=== PATIENT | female | born 1995 | race Caucasian/White ===

== ENCOUNTER 2019-01-02 22:25 | Emergency (ER) | payer OTHER ==
--- NOTE | 2019-01-02 22:35 | ERPHSYRPT ---
- History of Present Illness Time Seen by Provider: 01/02/19 22:35 Historian: patient, family Exam Limitations: no limitations Physician History: 23 y/o obese white female presents with sudden onset of bilat lower quadrant pain. L worse than R. no flank pain. pt just completed her lmp. pt has h/o ruptured ovarian cysts. feels like that but more intense. no vaginal bleeding. no dysuria. no n/v/d. no prior abd surgeries Timing/Duration: today, sudden, worse Activities at Onset: none Quality: sharpness, stabbing Abdominal Pain Onset Location: RLQ, LLQ Pain Radiation: no radiation Severity of Pain-Max: moderate Severity of Pain-Current: moderate Modifying Factors: Improves With: palpation Associated Symptoms: denies symptoms Previous symptoms: no prior history Allergies/Adverse Reactions: erythromycin base [Erythromycin Base] Allergy (Mild, Verified 01/02/19 22:33) Hives penicillin G Allergy (Mild, Verified 01/02/19 22:33) Hives Home Medications: Lamotrigine [Lamictal] 0 mg PO DAILY 03/03/14 [History] AMITRIPTYLINE HCL 50 mg Tab [AMITRIPTYLINE HCL 50 mg Tablet] 50 mg PO DAILY 11/16 [History] Cetirizine HCl 10 mg PO DAILY 01/02/19 [History] EPINEPHrine [Epipen 0.3 MG] 0.3 mg SQ DAILY PRN PRN 01/02/19 [History] Eletriptan HBr 40 mg PO Q4HPRN PRN 01/02/19 [History] Fluoxetine HCl 10 mg [Prozac 10 mg] 10 mg PO DAILY 01/02/19 [History] Norethindrone 0.35 mg PO DAILY 01/02/19 [History] Omeprazole 20 mg PO DAILY 01/02/19 [History] Tizanidine HCl 4 mg PO HS 01/02/19 [History] Tizanidine HCl 4 mg [Zanaflex 4 MG] 2 mg PO BID 01/02/19 [History] Hx Tetanus, Diphtheria Vaccination/Date Given: Yes Hx Influenza Vaccination/Date Given: No Hx Pneumococcal Vaccination/Date Given: No - Review of Systems Constitutional: No Symptoms Eyes: No Symptoms Ears, Nose, & Throat: No Symptoms Respiratory: No Symptoms Cardiac: No Symptoms Abdominal/Gastrointestinal: Abdominal Pain (bilat lower quad) Genitourinary Symptoms: No Symptoms Musculoskeletal: No Symptoms Skin: No Symptoms Neurological: No Symptoms Psychological: No Symptoms Endocrine: No Symptoms Hematologic/Lymphatic: No Symptoms Immunological/Allergic: No Symptoms All Other Systems: Reviewed and Negative - Past Medical History Pertinent Past Medical History: Yes Neurological History: Migraines ENT History: No Pertinent History Cardiac History: No Pertinent History, Other Respiratory History: No Pertinent History Endocrine Medical History: No Pertinent History Musculoskeletal History: No Pertinent History GI Medical History: No Pertinent History History: No Pertinent History Psycho-Social History: Attention Deficit Disorder, Bipolar, Depression Female Reproductive Disorders: No Pertinent History Other Medical History: pulmonary stenosis, no problems with it since a kid, 2 knee surgeries on L, 1 on R knee - Past Surgical History Past Surgical History: Yes Neuro Surgical History: No Pertinent History Cardiac: No Pertinent History Respiratory: No Pertinent History Gastrointestinal: No Pertinent History Genitourinary: No Pertinent History Musculoskeletal: No Pertinent History Female Surgical History: No Pertinent History Other Surgical History: TONSILLECTOMY AND BONE RESET - Social History Smoking Status: Never smoker Exposure to second hand smoke: Yes Alcohol Use: None Drug Use: none Patient Lives Alone: No Significant Family History: no pertinent family hx - Nursing Vital Signs Nursing Vital Signs: Initial Vital Signs Temperature 98.3 F 01/02/19 22:34 Pulse Rate 88 01/02/19 22:34 Respiratory Rate 16 01/02/19 22:34 Blood Pressure 105/72 01/02/19 22:34 O2 Sat by Pulse Oximetry 95 01/02/19 22:34 Pain Scale Pain Intensity 0 - Physical Exam General Appearance: mild distress, alert, anxiety, obese Eye Exam: PERRL/EOMI Ears, Nose, Throat Exam: normal ENT inspection, moist mucous membranes Neck Exam: normal inspection, non-tender, supple, full range of motion Respiratory Exam: normal breath sounds, lungs clear, airway intact, No chest tenderness, No respiratory distress Cardiovascular Exam: regular rate/rhythm, normal heart sounds, normal peripheral pulses Gastrointestinal/Abdomen Exam: soft, normal bowel sounds, tenderness (bilat lower quads l>r; ), guarding, No rebound Pelvic Exam: not done Rectal Exam: not done Back Exam: normal inspection, normal range of motion, vertebral tenderness, No CVA tenderness Extremity Exam: normal inspection, normal range of motion, pelvis stable Neurologic Exam: alert, oriented x 3, cooperative, body finisher II-XII nml as tested Skin Exam: normal color, warm, dry Lymphatic Exam: No adenopathy SpO2 Interpretation: normal O2 Delivery: Room Air - Course Nursing assessment & vital signs reviewed: Yes Ordered Tests: Active Orders 24 hr Category Date Time Status IV Insertion STAT Care 01/02/19 22:42 Active ABDOMEN AND PELVIS W/0 CONTRAS [CT] Stat Exams 01/02/19 22:53 Taken AMYLASE Stat Lab 01/02/19 23:53 Completed CBC W DIFF Stat Lab 01/02/19 23:53 Completed CMP Stat Lab 01/02/19 23:53 Completed CULTURE,URINE Stat Lab 01/02/19 23:53 Received HCG QUALITATIVE,SERUM Stat Lab 01/02/19 23:53 Completed LIPASE Stat Lab 01/02/19 23:53 Completed Lactic Acid Stat Lab 01/02/19 22:53 Completed UA W/RFX UR CULTURE Stat Lab 01/02/19 23:53 Completed Medication Summary Generic Name Dose Route Start Last Admin Trade Name Freq PRN Reason Stop Dose Admin Sodium Chloride 500 mls @ 500 mls/hr 01/03/19 01:06 01/03/19 01:10 Sodium Chloride 0.9% 500 Ml IV 01/03/19 02:05 500 mls/hr .Q1H ONE Administration Discontinued Medications Generic Name Dose Route Start Last Admin Trade Name Freq PRN Reason Stop Dose Admin Hydromorphone HCl 0.5 mg 01/02/19 22:53 01/02/19 23:09 Hydromorphone 1 Mg/Ml Ampule IV 01/02/19 22:54 0.5 mg STAT ONE Administration Hydromorphone HCl Confirm 01/02/19 23:04 Hydromorphone 1 Mg/Ml Ampule Administered 01/02/19 23:05 Dose 1 mg .ROUTE .STK-MED ONE Sodium Chloride 1,000 mls @ 999 mls/hr 01/02/19 22:53 01/03/19 01:11 Sodium Chloride 0.9% 1000 Ml IV 01/02/19 23:53 Infused .Q1H1M STA Infusion Sodium Chloride Confirm 01/02/19 23:04 Sodium Chloride 0.9% 1000 Ml Administered 01/02/19 23:05 Dose 1,000 mls @ ud .ROUTE .STK-MED ONE Sodium Chloride Confirm 01/03/19 01:07 Sodium Chloride 0.9% 500 Ml Administered 01/03/19 01:08 Dose 500 mls @ ud IV .STK-MED ONE Ketorolac Tromethamine 30 mg 01/02/19 22:53 01/02/19 23:09 Toradol 30 Mg Injection IV 01/02/19 22:54 30 mg STAT ONE Administration Ketorolac Tromethamine Confirm 01/02/19 23:04 Toradol 30 Mg Injection Administered 01/02/19 23:05 Dose 30 mg .ROUTE .STK-MED ONE Ondansetron HCl 4 mg 01/02/19 22:53 01/02/19 23:09 Zofran 4 Mg/2 Ml Vial IV 01/02/19 22:54 4 mg STAT ONE Administration Ondansetron HCl Confirm 01/02/19 23:04 Zofran 4 Mg/2 Ml Vial Administered 01/02/19 23:05 Dose 4 mg .ROUTE .STK-MED ONE Lab/Rad Data: Laboratory Result Diagrams 01/02/19 23:53 01/02/19 23:53 Laboratory Results 01/02/19 01/02/19 01/02/19 Range/Units 23:53 23:53 23:53 WBC (4.0-10.5) K/mm3 RBC (4.1-5.4) M/mm3 Hgb (12.0-16.0) gm/dl Hct (35-47) % MCV (78-100) fl MCH (26-32) pg MCHC (32-36) g/dl RDW (11.5-14.0) % Plt Count (150-450) K/mm3 MPV (6-9.5) fl Gran % (36.0-66.0) % Eos # (Auto) (0-0.5) Absolute Lymphs (auto) (1.0-4.6) Absolute Monos (auto) (0.0-1.3) Lymphocytes % (24.0-44.0) % Monocytes % (0.0-12.0) % Eosinophils % (0.00-5.0) % Basophils % (0.0-0.4) % Absolute Granulocytes (1.4-6.9) Basophils # (0-0.4) Sodium 141 (137-145) mmol/L Potassium 3.7 (3.5-5.1) mmol/L Chloride 108 H (98-107) mmol/L Carbon Dioxide 19 L (22-30) mmol/L Anion Gap 17.3 H (5-15) MEQ/L BUN 13 (7-17) mg/dL Creatinine 1.02 (0.52-1.04) mg/dL Estimated GFR > 60.0 ML/MIN Glucose 116 H (74-106) mg/dL Lactic Acid (0.4-2.0) Calcium 9.7 (8.4-10.2) mg/dL Total Bilirubin 0.80 (0.2-1.3) mg/dL AST 28 (14-36) U/L ALT 22 (0-35) U/L Alkaline Phosphatase 99 (38-126) U/L Serum Total Protein 7.8 (6.3-8.2) g/dL Albumin 4.3 (3.5-5.0) g/dL Amylase 50 (30-110) U/L Lipase 25 (23-300) U/L Serum , Qual NEGATIVE (Negative) Urine Color JESENIA (YELLOW) Urine Appearance CLOUDY (CLEAR) Urine pH 5.0 (5-6) Ur Specific Stanton 1.027 (1.005-1.025) Urine Protein 100 (Negative) Urine Ketones TRACE (NEGATIVE) Urine Blood LARGE (0-5) Gurmeet/ul Urine Nitrite NEGATIVE (NEGATIVE) Urine Bilirubin NEGATIVE (NEGATIVE) Urine Urobilinogen NEGATIVE (0-1) mg/dL Ur Leukocyte Esterase NEGATIVE (NEGATIVE) Urine WBC (Auto) 26-50 (0-5) /HPF Urine RBC (Auto) >101 (0-2) /HPF U Epithel Cells (Auto) FEW (FEW) /HPF Urine Bacteria (Auto) NONE (NEGATIVE) /HPF Urine Mucus (Auto) SLIGHT (NEGATIVE) /HPF Urine Culture Reflexed YES (NO) Urine Glucose NEGATIVE (NEGATIVE) mg/dL 01/02/19 01/02/19 Range/Units 23:53 22:53 WBC 10.9 H (4.0-10.5) K/mm3 RBC 5.08 (4.1-5.4) M/mm3 Hgb 14.3 (12.0-16.0) gm/dl Hct 41.7 (35-47) % MCV 82.1 (78-100) fl MCH 28.1 (26-32) pg MCHC 34.3 (32-36) g/dl RDW 13.8 (11.5-14.0) % Plt Count 326 (150-450) K/mm3 MPV 11.9 H (6-9.5) fl Gran % 83.1 H (36.0-66.0) % Eos # (Auto) 0.16 (0-0.5) Absolute Lymphs (auto) 1.12 (1.0-4.6) Absolute Monos (auto) 0.52 (0.0-1.3) Lymphocytes % 10.3 L (24.0-44.0) % Monocytes % 4.8 (0.0-12.0) % Eosinophils % 1.5 (0.00-5.0) % Basophils % 0.3 (0.0-0.4) % Absolute Granulocytes 9.06 H (1.4-6.9) Basophils # 0.03 (0-0.4) Sodium (137-145) mmol/L Potassium (3.5-5.1) mmol/L Chloride (98-107) mmol/L Carbon Dioxide (22-30) mmol/L Anion Gap (5-15) MEQ/L BUN (7-17) mg/dL Creatinine (0.52-1.04) mg/dL Estimated GFR ML/MIN Glucose (74-106) mg/dL Lactic Acid 2.1 H (0.4-2.0) Calcium (8.4-10.2) mg/dL Total Bilirubin (0.2-1.3) mg/dL AST (14-36) U/L ALT (0-35) U/L Alkaline Phosphatase (38-126) U/L Serum Total Protein (6.3-8.2) g/dL Albumin (3.5-5.0) g/dL Amylase (30-110) U/L Lipase (23-300) U/L Serum , Qual (Negative) Urine Color (YELLOW) Urine Appearance (CLEAR) Urine pH (5-6) Ur Specific Stanton (1.005-1.025) Urine Protein (Negative) Urine Ketones (NEGATIVE) Urine Blood (0-5) Gurmeet/ul Urine Nitrite (NEGATIVE) Urine Bilirubin (NEGATIVE) Urine Urobilinogen (0-1) mg/dL Ur Leukocyte Esterase (NEGATIVE) Urine WBC (Auto) (0-5) /HPF Urine RBC (Auto) (0-2) /HPF U Epithel Cells (Auto) (FEW) /HPF Urine Bacteria (Auto) (NEGATIVE) /HPF Urine Mucus (Auto) (NEGATIVE) /HPF Urine Culture Reflexed (NO) Urine Glucose (NEGATIVE) mg/dL - Progress Progress: improved Progress Note: 01/03/19 01:49 ct abd/pelvis-3mm left upj stone with minimal hydronephrosis Counseled pt/family regarding: lab results, diagnosis, need for follow-up, rad results - Departure Departure Disposition: Home Clinical Impression: Left ureteral calculus, UTI (urinary tract infection) Condition: Stable Critical Care Time: No Referrals: LUPE DONAHUE [Primary Care Provider] - Additional Instructions: drink plenty of fluids. add ibuprofen for pain as discussed. follow up with primary doctor for further management Prescriptions: Hydrocodone/APAP 5/325 [[place] 5/325 mg] 1 each PO Q8H PRN PRN #6 tablet MDD 6 PRN Reason: Pain Ciprofloxacin [Cipro 500 MG] 500 mg PO BID #14 tablet
[2019-01-02] MEDS ORDERED: Hydromorphone 1 mg/ml Ampule IV ONE (22:53)
[2019-01-02] MEDS ORDERED: Sodium Chloride 0.9% 1000 ML 1,000 ML IV STA (22:53)
[2019-01-02] MEDS ORDERED: TORAdol 30 mg Injection IV ONE (22:53)
[2019-01-02] MEDS ORDERED: Zofran 4 MG/2 ML VIAL IV ONE (22:53)
[2019-01-02] MEDS ORDERED: Zofran 4 MG/2 ML VIAL ONE (23:04)
[2019-01-02] MEDS ORDERED: Sodium Chloride 0.9% 1000 ML 1,000 ML ONE (23:04)
[2019-01-02] MEDS ORDERED: Hydromorphone 1 mg/ml Ampule ONE (23:04)
[2019-01-02] MEDS ORDERED: TORAdol 30 mg Injection ONE (23:04)
[2019-01-02 23:24] LABS: Lactic Acid 2.1 (0.4-2.0)
[2019-01-02 23:25] LABS: BASOPHIL % 0.3 % (0.0-0.4); Basophil (Absolute #) 0.03 (0-0.4); Eosinophil % 1.5 % (0.00-5.0); Eosinophil (Absolute #) 0.16 (0-0.5); Granulocyte Absolute (ANC) 9.06 (1.4-6.9); Granulocytes % 83.1 % (36.0-66.0); Hematocrit 41.7 % (35-47); Hemoglobin 14.3 gm/dl (12.0-16.0); Lymphocyte (Absolute #) 1.12 (1.0-4.6); Lymphocytes % 10.3 % (24.0-44.0); Mean Cell Volume 82.1 fl (78-100); Mean Corpuscular Hemoglobin 28.1 pg (26-32); Mean Corpuscular Hgb Concent. 34.3 g/dl (32-36); Mean Platelet Volume 11.9 fl (6-9.5); Monocyte (Absolute #) 0.52 (0.0-1.3); Monocytes % 4.8 % (0.0-12.0); Platelet Count 326 K/mm3 (150-450); Red Blood Count 5.08 M/mm3 (4.1-5.4); Red Cell Distribution Width 13.8 % (11.5-14.0); White Blood Count 10.9 K/mm3 (4.0-10.5)
[2019-01-02 23:55] LABS: Appearance CLOUDY (CLEAR); Bilirubin NEGATIVE (NEGATIVE); Blood LARGE Ery/ul (0-5); Epithelial Cells FEW /HPF (FEW); Glucose NEGATIVE (NEGATIVE); Ketones TRACE (NEGATIVE); Leukocyte Esterase NEGATIVE (NEGATIVE); Mucus SLIGHT /HPF (NEGATIVE); Nitrite NEGATIVE (NEGATIVE); Protein,Urine Dip 100 (Negative); Specific Gravity 1.027 (1.005-1.025); Urobilinogen NEGATIVE mg/dL (0-1); WBC 26-50 /HPF (0-5)
[2019-01-02 23:57] LABS: RBC >101 /HPF (0-2)
[2019-01-03] LABS: ALBUMIN 4.3 g/dL (3.5-5.0); ALKALINE PHOSPHATASE 99 U/L (38-126); AMYLASE 50 U/L (30-110); ANION GAP 17.3 MEQ/L (5-15); BLOOD UREA NITROGEN 13 mg/dL (7-17); CHLORIDE 108 mmol/L (98-107); Calcium 9.7 mg/dL (8.4-10.2); Carbon Dioxide 19 mmol/L (22-30); Creatinine 1 1.02 mg/dL (0.52-1.04); Glucose 116 mg/dL (74-106); Potassium 3.7 mmol/L (3.5-5.1); SGOT/AST 28 U/L (14-36); SGPT/ALT 22 U/L (0-35); SODIUM 141 mmol/L (137-145); Total Protein 7.8 g/dL (6.3-8.2)
[2019-01-03] MEDS ORDERED: Sodium Chloride 0.9% 500 ML 500 ML IV ONE ×2 (01:06→01:07)
[2019-01-03] MEDS ORDERED: Cipro 500 MG PO ONE (01:55)
[2019-01-03] MEDS ORDERED: Cipro 500 MG ONE (02:01)
[2019-01-03 02:27] VITALS: BP 110/63; PULSE 79; O2SAT 98
--- NOTE | 2019-01-03 08:46 | XRAY ---
Indication: Bilateral lower quadrant pain. Emesis. Hematuria. Multiple contiguous axial images obtained through the abdomen and pelvis without contrast as ordered. Comparison: March 07, 2012. Lung bases demonstrates minimal bibasilar atelectasis/scarring. Heart is not enlarged. Noncontrasted stomach and bowel loops appear nonobstructed. Normal appendix. No free fluid/air. New 3 mm proximal left ureter calculus, approximately L2 level. Minimal left hydronephrosis consistent with partial obstruction. No perinephric fluid. Remaining liver, gallbladder, pancreas, spleen, adrenal glands, kidneys, ureters, bladder, uterus, and aorta appear unremarkable for noncontrast exam. Osseous structures intact. Impression: 1. New 3 mm proximal left ureter calculus producing minimal partial obstruction. 2. Remaining CT abdomen/pelvis without contrast exam is negative. Comment: Preliminary interpretation was made by C. No discrepancy. CTDI 23.68
== END 2019-01-03 02:27 | disposition home or self-care (01) ==
LOC: ED 22:25
DX: N20.1 Calculus of ureter (principal); N39.0 Urinary tract infection, site not specified; R10.31 Right lower quadrant pain; R10.32 Left lower quadrant pain; Z79.899 Other long term (current) drug therapy
CPT/HCPCS: 36000; 36415; 74176; 80053; 81001; 81025; 82150; 83605; 83690; 85025; 87086; 96360; 96361; 96374; 96375; 99284; J1170; J1885; J2405; A9270-GY

== ENCOUNTER 2021-09-04 14:46 | Emergency (ER) | payer OTHER ==
--- NOTE | 2021-09-04 15:22 | XRAY ---
Indication: Pain following fall 2 weeks ago. 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 No other bony, articular, or soft tissue abnormalities.
--- NOTE | 2021-09-04 15:53 | ERPHSYRPT ---
- History of Present Illness Source: patient Exam Limitations: no limitations Patient Subjective Stated Complaint: Pt fell approx 2 weeks ago out of a chair and landed on her left shoulder and continues to have pain to it and to her mid back Triage Nursing Assessment: Pt was brought to the ER by her mother, vitals wnl, rates pain as 6/10, pulses normal, tender to touch on shoulder and back, no visible bruising, full range of motion with her left arm, doesn't appear to be in any distress Physician History: 26 yo wf w cc of L shoulder pain after falling backward out of a chair 2 wks ago. Pt is R handed and denies other/previous injury. She denies CHIANG/LOC/C,T, and L-spine pain/B hip pain/LE pain/. Occurred: other (2 wks ago) Method of Injury: fell Quality: constant Severity of Pain-Max: moderate Severity of Pain-Current: moderate Extremities Pain Location: shoulder: left Modifying Factors: Improves With: nothing, movement Associated Symptoms: No back pain, No chills, No chest discomfort, No chest pain, No dyspnea, No fever, No jaw pain, No nausea, No neck pain, No sweating, No short of breath, No vomiting Allergies/Adverse Reactions: erythromycin base [Erythromycin Base] Allergy (Mild, Verified 09/04/21 15:01) Hives penicillin G Allergy (Mild, Verified 09/04/21 15:01) Hives Home Medications: Lamotrigine [Lamictal] 150 mg PO BID 03/03/14 [History] AMITRIPTYLINE HCL 50 mg Tab [AMITRIPTYLINE HCL 50 mg Tablet] 50 mg PO DAILY 01/02/19 [History] Cetirizine HCl 10 mg PO DAILY 01/02/19 [History] EPINEPHrine [Epipen 0.3 MG] 0.3 mg SQ DAILY PRN PRN 01/02/19 [History] Eletriptan HBr 40 mg PO Q6HPRN PRN 01/02/19 [History] Norethindrone 0.35 mg PO DAILY 01/02/19 [History] Omeprazole 20 mg PO DAILY 01/02/19 [History] Tizanidine HCl 4 mg PO BID 01/02/19 [History] Buspirone HCl 10 mg PO TID 09/04/21 [History] Montelukast Sodium 10 mg [Singulair 10 MG] 10 mg PO DAILY 09/04/21 [History] Vortioxetine Hydrobromide [Trintellix] 20 mg PO DAILY 09/04/21 [History] hydrOXYzine HCL [Hydroxyzine HCl] 10 mg PO BID 09/04/21 [History] Hx Tetanus, Diphtheria Vaccination/Date Given: Yes Hx Influenza Vaccination/Date Given: No Hx Pneumococcal Vaccination/Date Given: No Travel Risk - International Travel Have you traveled outside of the country in past 3 weeks: No - Coronavirus Screening Are you exhibiting any of the following symptoms?: No Close contact with a COVID-19 positive Pt in past 14-21 Days: No - Vaccine Status Have you recieved a Covid-19 vaccination: No - Review of Systems Constitutional: No Symptoms Eyes: No Symptoms Ears, Nose, & Throat: No Symptoms Respiratory: No Symptoms Cardiac: No Symptoms Abdominal/Gastrointestinal: No Symptoms Genitourinary Symptoms: No Symptoms Musculoskeletal: Injury, Joint Pain (L shoulder), No Back Pain, No Neck Pain, No Deformity, No Fall, No Joint Redness, No Joint Swelling, No Myalgias Skin: No Symptoms Neurological: No Symptoms Psychological: No Symptoms Endocrine: No Symptoms Hematologic/Lymphatic: No Symptoms Immunological/Allergic: No Symptoms - Past Medical History Pertinent Past Medical History: Yes Neurological History: Migraines ENT History: No Pertinent History Cardiac History: Other Respiratory History: No Pertinent History Endocrine Medical History: No Pertinent History Musculoskeletal History: Other GI Medical History: No Pertinent History History: No Pertinent History Psycho-Social History: Attention Deficit Disorder, Bipolar, Depression Female Reproductive Disorders: No Pertinent History Other Medical History: STATES HAS PULMONARY STENOSIS BUT ASYMPTOMATIC SINCE A CHILD. ANXIETY, BIPOLAR, DEPRESSION - Past Surgical History Past Surgical History: Yes Neuro Surgical History: No Pertinent History Cardiac: No Pertinent History Respiratory: No Pertinent History Gastrointestinal: No Pertinent History Genitourinary: No Pertinent History Musculoskeletal: No Pertinent History Female Surgical History: No Pertinent History Other Surgical History: TONSILLECTOMY AND BONE RESET - Social History Smoking Status: Former smoker Exposure to second hand smoke: No Alcohol Use: None Drug Use: none Patient Lives Alone: No Significant Family History: no pertinent family hx - Female History Hx Last Menstrual Period: last month Hx Now: No - Nursing Vital Signs Nursing Vital Signs: Initial Vital Signs Temperature 98.6 F 09/04/21 14:52 Pulse Rate 91 H 09/04/21 14:52 Blood Pressure 143/64 09/04/21 14:52 O2 Sat by Pulse Oximetry 99 09/04/21 14:52 Pain Scale Pain Intensity [] 6 Pain Intensity 5 Hypertensive - Physical Exam General Appearance: no apparent distress Eyes, Ears, Nose, Throat Exam: normal ENT inspection, TMs normal, pharynx normal, moist mucous membranes Neck Exam: normal inspection (C-spine NTTP), non-tender, supple, full range of motion, No Brudzinski, No Kernig's, No meningismus, No carotid bruit Cardiovascular/Respiratory Exam: chest non-tender, normal breath sounds, regular rate/rhythm, heart sounds normal Abdominal Exam: non-tender, soft, no organomegaly Back Exam: normal inspection (No T or L-spine TTP) Shoulder Exam: bone tenderness (L-shoulder TTP anteriorly-posteriorly/L scapula TTP/pain w abduction, and external rotation/Good radial pulse, distal sensation, and capillary return) Elbow/Forearm Exam: normal inspection Wrist Exam: normal inspection Hand Exam: normal inspection DTR - Upper Extremity Exam: bicep (R): 1+, bicep (L): 1+ Neuro/Tendon Exam: normal sensation, normal motor functions, normal tendon functions, responds to pain, no evidence tendon injury, No motor deficit, No sensory deficit Mental Status Exam: alert, oriented x 3, cooperative Skin Exam: normal color, warm, dry SpO2 Interpretation: normal SpO2: 99 O2 Delivery: Room Air - Course Nursing assessment & vital signs reviewed: Yes - Radiology Exams Shoulder X-ray Interpretation: Discussed w/ radiologist (No acute traumatic injury) Ordered Tests: Active Orders 24 hr Category Date Time Status SHOULDER Stat Exams 09/04/21 15:15 Completed Medication Summary Discontinued Medications Generic Name Dose Route Start Last Admin Trade Name Freq PRN Reason Stop Dose Admin Ketorolac Tromethamine 30 mg 09/04/21 15:55 09/04/21 16:02 Ketorolac Tromethamine 30 Mg/Ml Inj IM 09/04/21 15:56 30 mg STAT ONE Administration Ketorolac Tromethamine Confirm 09/04/21 15:59 Ketorolac Tromethamine 30 Mg/Ml Inj Administered 09/04/21 16:00 Dose 30 mg .ROUTE .STK-MED ONE - Progress Counseled pt/family regarding: diagnosis, need for follow-up, rad results - Departure Departure Disposition: Home Clinical Impression: Contusion of shoulder, left Condition: Stable Critical Care Time: No Referrals: LUPE DONAHUE [Primary Care Provider] - Follow up/PCP as directed ORTHO - MARLON HUGHES NP [NON-STAFF PHY W/O PRIVILEGES] - Follow up/PCP as directed Instructions: Shoulder Sprain Additional Instructions: Rest/Heat/Massage Follow up with your family MD or Ortho clinic Prescriptions: Etodolac 400 mg [Lodine 400 mg] 400 mg PO BID PRN #20 tablet PRN Reason: Pain
[2021-09-04] MEDS ORDERED: TORAdol 30 mg Injection IM ONE (15:55)
[2021-09-04 15:58] VITALS: O2SAT 99
[2021-09-04] MEDS ORDERED: TORAdol 30 mg Injection ONE (15:59)
[2021-09-04 16:06] VITALS: BP 131/74; PULSE 90
== END 2021-09-04 16:19 | disposition home or self-care (01) ==
LOC: ED 14:46
DX: S40.012A Contusion of left shoulder, initial encounter (principal); W07.XXXA Fall from chair, initial encounter; Z79.899 Other long term (current) drug therapy
CPT/HCPCS: 73030; 96372; 99284; J1885

== ENCOUNTER 2022-04-16 14:15 | Emergency (ER) | payer OTHER ==
[2022-04-16] MEDS ORDERED: Zofran 4 MG/2 ML VIAL IV ONE (14:44)
[2022-04-16] MEDS ORDERED: Sodium Chloride 0.9% 1000 ML 1,000 ML IV STA (14:44)
[2022-04-16 14:52] LABS: Absolute Neutrophil Ct (ANC) 6.71 x10^3/uL (1.4-6.9); Basophil (Absolute #) 0.05 x10^3/uL (0-0.4); Eosinophil % 0.8 % (0.00-5.0); Eosinophil (Absolute #) 0.07 x10^3/uL (0-0.5); Hematocrit 40.1 % (35-47); Hemoglobin 13.4 g/dL (12.0-16.0); Lymphocyte (Absolute #) 1.04 x10^3/uL (1.0-4.6); Lymphocytes % 12.6 % (24.0-44.0); Mean Cell Volume 84.2 fL (78-100); Mean Corpuscular Hemoglobin 28.2 pg (26-32); Mean Corpuscular Hgb Concent. 33.4 g/dL (32-36); Mean Platelet Volume 10.4 fL (7.5-11.0); Monocyte (Absolute #) 0.38 x10^3/uL (0.0-1.3); Monocytes % 4.6 % (0.0-12.0); Platelet Count 316 x10^3/uL (150-450); Red Blood Count 4.76 x10^6/uL (4.1-5.4); Red Cell Distribution Width 12.8 % (11.5-14.0); White Blood Count 8.3 x10^3/uL (4.0-10.5)
[2022-04-16] MEDS ORDERED: Sodium Chloride 0.9% 1000 ML 1,000 ML ONE (14:54)
[2022-04-16] MEDS ORDERED: Zofran 4 MG/2 ML VIAL ONE (14:54)
[2022-04-16 14:57] LABS: Appearance SLIGHTLY CLOUDY (CLEAR); Bilirubin NEGATIVE (NEGATIVE); Dipstick done @ ? MAIN LAB; Glucose NEGATIVE (NEGATIVE); Ketones NEGATIVE (NEGATIVE); Nitrite NEGATIVE (NEGATIVE); Protein,Urine Dip TRACE (Negative); RBC LARGE Ery/ul (0-5); Specific Gravity 1.025 (1.005-1.025); Urobilinogen 0.2 mg/dL (0-1)
[2022-04-16] MEDS ORDERED: TORAdol 30 mg Injection IV ONE ×2 (15:00→16:36)
[2022-04-16] MEDS ORDERED: TORAdol 30 mg Injection ONE ×2 (15:00→16:49)
[2022-04-16 15:10] LABS: ALBUMIN 4.3 g/dL (3.5-5.0); ALKALINE PHOSPHATASE 104 U/L (38-126); AMYLASE 52 U/L (30-110); ANION GAP 12.1 MEQ/L (5-15); BLOOD UREA NITROGEN 14 mg/dL (7-17); CHLORIDE 110 mmol/L (98-107); Calcium 9.2 mg/dL (8.4-10.2); Carbon Dioxide 21 mmol/L (22-30); Creatinine 1 0.94 mg/dL (0.52-1.04); EST GLOMERULAR FILTRATION RATE > 60.0 ML/MIN; Glucose 126 mg/dL (74-106); LIPASE 29 U/L (23-300); Potassium 3.9 mmol/L (3.5-5.1); SGOT/AST 20 U/L (14-36); SGPT/ALT 25 U/L (0-35); SODIUM 139 mmol/L (137-145); Total Protein 7.5 g/dL (6.3-8.2)
[2022-04-16 15:19] LABS: Bacteria RARE /HPF (NEGATIVE); Epithelial Cells FEW /HPF (FEW); Mucus SLIGHT /HPF (NEGATIVE); RBC 51-100 /HPF (0-2); Urine Cultured Indicated? YES
--- NOTE | 2022-04-16 15:21 | ERPHSYRPT ---
- History of Present Illness Historian: patient Exam Limitations: no limitations Patient Subjective Stated Complaint: abd pain, NVD, R sided flank pain Triage Nursing Assessment: . Physician History: 27 yo wf w R sided abdominal pain since noon today. Pain is 10/10, sharp, w radiation to her R CVA. She has had N/V/D wo hematemesis/melena/hematochezia. Dysuria/hematuria/fever are all denied. Pain similar to kidney stone in the past. Timing/Duration: other (Noon today) Quality: stabbing Abdominal Pain Onset Location: LUQ, LLQ Pain Radiation: flank (R CVA) Severity of Pain-Max: severe Severity of Pain-Current: severe Modifying Factors: Improves With: nothing Associated Symptoms: denies symptoms, back, diarrhea, vomiting Previous symptoms: same symptoms as today (W kidney stone) Allergies/Adverse Reactions: erythromycin base [Erythromycin Base] Allergy (Mild, Verified 04/16/22 14:32) Hives penicillin G Allergy (Mild, Verified 04/16/22 14:32) Hives Home Medications: Lamotrigine [Lamictal] 150 mg PO BID 03/03/14 [History] AMITRIPTYLINE HCL 50 mg Tab [AMITRIPTYLINE HCL 50 mg Tablet] 50 mg PO DAILY 01/02/19 [History] Cetirizine HCl 10 mg PO DAILY 01/02/19 [History] EPINEPHrine [Epipen 0.3 MG] 0.3 mg SQ DAILY PRN PRN 01/02/19 [History] Eletriptan HBr 40 mg PO Q6HPRN PRN 01/02/19 [History] Norethindrone 0.35 mg PO DAILY 01/02/19 [History] Omeprazole 20 mg PO DAILY 01/02/19 [History] Tizanidine HCl 4 mg PO BID 01/02/19 [History] Buspirone HCl 10 mg PO TID 09/04/21 [History] Montelukast Sodium 10 mg [Singulair 10 MG] 10 mg PO DAILY 09/04/21 [History] Vortioxetine Hydrobromide [Trintellix] 20 mg PO DAILY 09/04/21 [History] hydrOXYzine HCL [Hydroxyzine HCl] 10 mg PO BID 09/04/21 [History] Hx Tetanus, Diphtheria Vaccination/Date Given: Yes Hx Influenza Vaccination/Date Given: Yes Hx Pneumococcal Vaccination/Date Given: No Immunizations Up to Date: Yes Travel Risk - International Travel Have you traveled outside of the country in past 3 weeks: No - Coronavirus Screening Are you exhibiting any of the following symptoms?: Yes Symptoms: Vomiting/Diarrhea Close contact with a COVID-19 positive Pt in past 14-21 Days: No - Vaccine Status Have you recieved a Covid-19 vaccination: No - Review of Systems Constitutional: No Symptoms Eyes: No Symptoms Ears, Nose, & Throat: No Symptoms Respiratory: No Symptoms Cardiac: No Symptoms Abdominal/Gastrointestinal: No Symptoms, Abdominal Pain, Nausea, Vomiting, Diarrhea Genitourinary Symptoms: No Symptoms Musculoskeletal: No Symptoms Skin: No Symptoms Neurological: No Symptoms Psychological: No Symptoms Endocrine: No Symptoms Hematologic/Lymphatic: No Symptoms Immunological/Allergic: No Symptoms - Past Medical History Pertinent Past Medical History: Yes Neurological History: Migraines ENT History: No Pertinent History Cardiac History: Other Respiratory History: No Pertinent History Endocrine Medical History: No Pertinent History Musculoskeletal History: Other GI Medical History: No Pertinent History History: No Pertinent History Psycho-Social History: Attention Deficit Disorder, Bipolar, Depression Female Reproductive Disorders: No Pertinent History Other Medical History: STATES HAS PULMONARY STENOSIS BUT ASYMPTOMATIC SINCE A CHILD. ANXIETY, BIPOLAR, DEPRESSION - Past Surgical History Past Surgical History: Yes Neuro Surgical History: No Pertinent History Cardiac: No Pertinent History Respiratory: No Pertinent History Gastrointestinal: No Pertinent History Genitourinary: No Pertinent History Musculoskeletal: Orthopedic Surgery Female Surgical History: No Pertinent History Other Surgical History: TONSILLECTOMY AND BONE RESET. bilateral knee surgeries x3 - Social History Smoking Status: Former smoker Exposure to second hand smoke: No Alcohol Use: None Drug Use: none Patient Lives Alone: No Significant Family History: no pertinent family hx - Female History Hx Last Menstrual Period: months ago Hx Now: No - Nursing Vital Signs Nursing Vital Signs: Initial Vital Signs Temperature 96.0 F 04/16/22 14:24 Pulse Rate 80 04/16/22 14:24 Respiratory Rate 20 04/16/22 14:24 Blood Pressure 157/77 04/16/22 14:24 O2 Sat by Pulse Oximetry 98 04/16/22 14:24 Pain Scale Pain Intensity 5 Hypertensive - Physical Exam General Appearance: no apparent distress Eye Exam: PERRL/EOMI, eyes nml inspection Ears, Nose, Throat Exam: normal ENT inspection, TMs normal, pharynx normal, moist mucous membranes Neck Exam: normal inspection, non-tender, supple, full range of motion, No meningismus, No mass, No Brudzinski, No Kernig's, No carotid bruit Respiratory Exam: normal breath sounds, lungs clear, airway intact Cardiovascular Exam: regular rate/rhythm, normal heart sounds, normal peripheral pulses, capillary refill <2 sec, No murmur Gastrointestinal/Abdomen Exam: soft, normal bowel sounds, tenderness (TTP R LQ>RUQ, mild R CVA TTP) Extremity Exam: normal inspection, normal range of motion Neurologic Exam: alert, oriented x 3, cooperative, regional operations manager II-XII nml as tested, normal mood/affect, nml cerebellar function, nml station & gait, sensation nml, No motor deficits, No sensory deficit Skin Exam: normal color, warm, dry, No rash Lymphatic Exam: No adenopathy SpO2 Interpretation: normal SpO2: 98 O2 Delivery: Room Air - Course Nursing assessment & vital signs reviewed: Yes - CT Exams Abdomen/Pelvis CT Interpretation: Discussed w/radiologist (3mm R mid-ureteral stone/minimal R hydronephrosis) Ordered Tests: Active Orders 24 hr Category Date Time Status IV Insertion STAT Care 04/16/22 14:32 Completed ABDOMEN AND PELVIS W/0 CONTRAS [CT] Stat Exams 04/16/22 15:32 Completed AMYLASE Stat Lab 04/16/22 14:30 Completed CBC W DIFF Stat Lab 04/16/22 14:30 Completed CMP Stat Lab 04/16/22 14:30 Completed CULTURE,URINE Stat Lab 04/16/22 14:45 Received HCG QUALITATIVE,SERUM Stat Lab 04/16/22 14:30 Completed LIPASE Stat Lab 04/16/22 14:30 Completed UA W/RFX CULTURE Stat Lab 04/16/22 14:45 Completed Urine Triage Profile Stat Lab 04/16/22 14:45 Completed Medication Summary Discontinued Medications Generic Name Dose Route Start Last Admin Trade Name Freq PRN Reason Stop Dose Admin Sodium Chloride 1,000 mls @ 999 mls/hr 04/16/22 14:44 04/16/22 16:10 Sodium Chloride 0.9% 1000 Ml IV 04/16/22 15:44 Infused .Q1H1M STA Infusion Sodium Chloride Confirm 04/16/22 14:54 Sodium Chloride 0.9% 1000 Ml Administered 04/16/22 14:55 Dose 1,000 mls @ ud .ROUTE .STK-MED ONE Ceftriaxone Sodium/Dextrose 1 g in 50 mls @ 100 mls/hr 04/16/22 16:35 04/16/22 16:57 Rocephin 1 Gm-D5w 50 Ml Bag IV 04/16/22 17:04 Infused STAT STA Infusion Ceftriaxone Sodium/Dextrose Confirm 04/16/22 16:49 Rocephin 1 Gm-D5w 50 Ml Bag Administered 04/16/22 16:50 Dose 1 g in 50 mls @ ud IV .STK-MED ONE Ketorolac Tromethamine 15 mg 04/16/22 15:00 04/16/22 15:01 Ketorolac Tromethamine 30 Mg/Ml Inj IV 04/16/22 15:01 15 mg STAT ONE Administration Ketorolac Tromethamine Confirm 04/16/22 15:00 Ketorolac Tromethamine 30 Mg/Ml Inj Administered 04/16/22 15:01 Dose 30 mg .ROUTE .STK-MED ONE Ketorolac Tromethamine 15 mg 04/16/22 16:36 04/16/22 16:52 Ketorolac Tromethamine 30 Mg/Ml Inj IV 04/16/22 16:37 15 mg STAT ONE Administration Ketorolac Tromethamine Confirm 04/16/22 16:49 Ketorolac Tromethamine 30 Mg/Ml Inj Administered 04/16/22 16:50 Dose 30 mg .ROUTE .STK-MED ONE Ondansetron HCl 4 mg 04/16/22 14:44 04/16/22 15:01 Ondansetron Hcl 4 Mg/2 Ml Vial IV 04/16/22 14:45 4 mg STAT ONE Administration Ondansetron HCl Confirm 04/16/22 14:54 Ondansetron Hcl 4 Mg/2 Ml Vial Administered 04/16/22 14:55 Dose 4 mg .ROUTE .STK-MED ONE Lab/Rad Data: Laboratory Result Diagrams 04/16/22 14:30 04/16/22 14:30 Laboratory Results 04/16/22 04/16/22 04/16/22 Range/Units 15:20 14:45 14:45 WBC (4.0-10.5) x10^3/uL RBC (4.1-5.4) x10^6/uL Hgb (12.0-16.0) g/dL Hct (35-47) % MCV (78-100) fL MCH (26-32) pg MCHC (32-36) g/dL RDW (11.5-14.0) % Plt Count (150-450) x10^3/uL MPV (7.5-11.0) fL Gran % (36.0-66.0) % Immature Gran % (Auto) (0.00-0.4) % Nucleat RBC Rel Count (0.00-0.1) % Eos # (Auto) (0-0.5) x10^3/uL Immature Gran # (Auto) (0.00-0.03) x10^3u/L Absolute Lymphs (auto) (1.0-4.6) x10^3/uL Absolute Monos (auto) (0.0-1.3) x10^3/uL Absolute Nucleated RBC (0.00-0.01) x10^3u/L Lymphocytes % (24.0-44.0) % Monocytes % (0.0-12.0) % Eosinophils % (0.00-5.0) % Basophils % (0.0-0.4) % Absolute Granulocytes (1.4-6.9) x10^3/uL Basophils # (0-0.4) x10^3/uL Sodium (137-145) mmol/L Potassium (3.5-5.1) mmol/L Chloride (98-107) mmol/L Carbon Dioxide (22-30) mmol/L Anion Gap (5-15) MEQ/L BUN (7-17) mg/dL Creatinine (0.52-1.04) mg/dL Estimated GFR ML/MIN Glucose (74-106) mg/dL Calcium (8.4-10.2) mg/dL Total Bilirubin (0.2-1.3) mg/dL AST (14-36) U/L ALT (0-35) U/L Alkaline Phosphatase (38-126) U/L Serum Total Protein (6.3-8.2) g/dL Albumin (3.5-5.0) g/dL Amylase (30-110) U/L Lipase (23-300) U/L Serum , Qual (Negative) Urinalys Dipstick Clnc MAIN LAB Urine Color YELLOW (YELLOW) Urine Appearance SLIGHTLY CLOUDY (CLEAR) Urine pH 6.0 (5-6) Ur Specific [place] 1.025 (1.005-1.025) POC Urine Protein Conf TRACE (Negative) Urine Ketones NEGATIVE (NEGATIVE) Urine Nitrite NEGATIVE (NEGATIVE) Urine Bilirubin NEGATIVE (NEGATIVE) Urine Urobilinogen 0.2 (0-1) mg/dL Urine Leukocytes TRACE (NEGATIVE) Urine WBC (Auto) 16-25 (0-5) /HPF Urine RBC (Auto) 51-100 (0-2) /HPF U Hyaline Cast (Auto) 3-5 (0-2) /LPF U Epithel Cells (Auto) FEW (FEW) /HPF Urine Bacteria (Auto) RARE (NEGATIVE) /HPF Urine RBC LARGE (0-5) Gurmeet/ul Urine Mucus (Auto) SLIGHT (NEGATIVE) /HPF Ur Culture Indicated? YES Urine Glucose NEGATIVE (NEGATIVE) mg/dL Urine Opiates Level NEGATIVE (NEGATIVE) Ur Methadone NEGATIVE (NEGATIVE) Urine Barbiturates NEGATIVE (NEGATIVE) Ur Phencyclidine (PCP) NEGATIVE (NEGATIVE) Urine Amphetamine NEGATIVE (NEGATIVE) U Benzodiazepine Level NEGATIVE (NEGATIVE) Urine Cocaine NEGATIVE (NEGATIVE) Urine Marijuana (THC) NEGATIVE (NEGATIVE) Influenza Type A Ag NEGATIVE (NEGATIVE) Influenza Type B Ag NEGATIVE (NEGATIVE) RSV (PCR) NEGATIVE (Negative) SARS-CoV-2 (PCR) NEGATIVE (NEGATIVE) 04/16/22 04/16/22 04/16/22 Range/Units 14:30 14:30 14:30 WBC 8.3 (4.0-10.5) x10^3/uL RBC 4.76 (4.1-5.4) x10^6/uL Hgb 13.4 (12.0-16.0) g/dL Hct 40.1 (35-47) % MCV 84.2 (78-100) fL MCH 28.2 (26-32) pg MCHC 33.4 (32-36) g/dL RDW 12.8 (11.5-14.0) % Plt Count 316 (150-450) x10^3/uL MPV 10.4 (7.5-11.0) fL Gran % 81.0 H (36.0-66.0) % Immature Gran % (Auto) 0.4 (0.00-0.4) % Nucleat RBC Rel Count 0.0 (0.00-0.1) % Eos # (Auto) 0.07 (0-0.5) x10^3/uL Immature Gran # (Auto) 0.03 (0.00-0.03) x10^3u/L Absolute Lymphs (auto) 1.04 (1.0-4.6) x10^3/uL Absolute Monos (auto) 0.38 (0.0-1.3) x10^3/uL Absolute Nucleated RBC 0.00 (0.00-0.01) x10^3u/L Lymphocytes % 12.6 L (24.0-44.0) % Monocytes % 4.6 (0.0-12.0) % Eosinophils % 0.8 (0.00-5.0) % Basophils % 0.6 (0.0-0.4) % Absolute Granulocytes 6.71 (1.4-6.9) x10^3/uL Basophils # 0.05 (0-0.4) x10^3/uL Sodium 139 (137-145) mmol/L Potassium 3.9 (3.5-5.1) mmol/L Chloride 110 H (98-107) mmol/L Carbon Dioxide 21 L (22-30) mmol/L Anion Gap 12.1 (5-15) MEQ/L BUN 14 (7-17) mg/dL Creatinine 0.94 (0.52-1.04) mg/dL Estimated GFR > 60.0 ML/MIN Glucose 126 H (74-106) mg/dL Calcium 9.2 (8.4-10.2) mg/dL Total Bilirubin 0.70 (0.2-1.3) mg/dL AST 20 (14-36) U/L ALT 25 (0-35) U/L Alkaline Phosphatase 104 (38-126) U/L Serum Total Protein 7.5 (6.3-8.2) g/dL Albumin 4.3 (3.5-5.0) g/dL Amylase 52 (30-110) U/L Lipase 29 (23-300) U/L Serum , Qual NEGATIVE (Negative) Urinalys Dipstick Clnc Urine Color (YELLOW) Urine Appearance (CLEAR) Urine pH (5-6) Ur Specific [place] (1.005-1.025) POC Urine Protein Conf (Negative) Urine Ketones (NEGATIVE) Urine Nitrite (NEGATIVE) Urine Bilirubin (NEGATIVE) Urine Urobilinogen (0-1) mg/dL Urine Leukocytes (NEGATIVE) Urine WBC (Auto) (0-5) /HPF Urine RBC (Auto) (0-2) /HPF U Hyaline Cast (Auto) (0-2) /LPF U Epithel Cells (Auto) (FEW) /HPF Urine Bacteria (Auto) (NEGATIVE) /HPF Urine RBC (0-5) Gurmeet/ul Urine Mucus (Auto) (NEGATIVE) /HPF Ur Culture Indicated? Urine Glucose (NEGATIVE) mg/dL Urine Opiates Level (NEGATIVE) Ur Methadone (NEGATIVE) Urine Barbiturates (NEGATIVE) Ur Phencyclidine (PCP) (NEGATIVE) Urine Amphetamine (NEGATIVE) U Benzodiazepine Level (NEGATIVE) Urine Cocaine (NEGATIVE) Urine Marijuana (THC) (NEGATIVE) Influenza Type A Ag (NEGATIVE) Influenza Type B Ag (NEGATIVE) RSV (PCR) (Negative) SARS-CoV-2 (PCR) (NEGATIVE) - Progress Progress: improved Progress Note: 04/16/22 16:38 1L NS bolus/4mg IV Zofran 15mg IV Toradol w improvement in pain 1gm IV Rocephin 15mg IV Toradol Counseled pt/family regarding: lab results, diagnosis, need for follow-up, rad results - Departure Departure Disposition: Home Clinical Impression: Ureterolithiasis, UTI (urinary tract infection) Condition: Stable Critical Care Time: No Referrals: LUPE DONAHUE [Primary Care Provider] - Follow up/PCP as directed Instructions: Kidney Stones (DC), Urinary Tract Infection, Adult (DC) Additional Instructions: Strain all urine Pain meds as needed Start Bactrim twice a day for 5 days Follow up with your family MD Return to ER for increasing pain or temperature greater than 100.5 Prescriptions: Hydrocodone/Acetaminophen [Hydrocodone-Acetamin 10-325 mg] 1 tablet PO Q4H PRN PRN #6 tablet MDD 4 tabs PRN Reason: Pain Ondansetron ODT 4 MG [Zofran Odt 4 mg] 4 mg PO Q6H PRN PRN #10 tablet PRN Reason: Nausea Smz/Tmp Ds Tablet [Bactrim Ds Tablet] 1 tab PO Q12H #10 tablet
[2022-04-16 15:27] LABS: Barbiturate,Urine NEGATIVE (NEGATIVE); Benzodiazepine,Urine NEGATIVE (NEGATIVE); Cocaine,Urine NEGATIVE (NEGATIVE); Opiate,Urine NEGATIVE (NEGATIVE); PCP,Urine NEGATIVE (NEGATIVE); THC,Urine NEGATIVE (NEGATIVE)
[2022-04-16 15:31] LABS: Methadone,Urine NEGATIVE (NEGATIVE)
[2022-04-16 15:58] LABS: INFLUENZA A NEGATIVE (NEGATIVE); INFLUENZA B NEGATIVE (NEGATIVE); RESPIRATORY SYNCTIAL VIRUS NEGATIVE (Negative); SARS-CoV-2 Xpert Express NEGATIVE (NEGATIVE)
[2022-04-16 16:14] LABS: Amphetamine,Urine NEGATIVE (NEGATIVE)
--- NOTE | 2022-04-16 16:33 | XRAY ---
Indication: Right abdomen pain. Multiple contiguous axial images obtained through the abdomen and pelvis without contrast using renal stone protocol. Comparison: January 13, 2019 Lung bases clear. Heart not enlarged. New 2-3 mm right mid ureter calculus, approximately L5-S1 level. Proximal right ureter minimally prominent along with minimal right hydronephrosis consistent with partial obstructive uropathy. No free fluid/air. No renal calculus or evidence for obstructive uropathy on the left. Noncontrasted stomach and bowel loops appear nonobstructed with normal appendix. Remaining liver, gallbladder, pancreas, spleen, adrenal glands, kidneys, ureters, bladder, uterus, and aorta are unremarkable for noncontrast exam. Osseous structures intact with mild lumbosacral junction degenerative disc disease. Impression: New 2-3 mm right mid ureter calculus producing minimal partial obstructive uropathy.
[2022-04-16] MEDS ORDERED: ROCEPHIN 1 Gm-D5w 50 ml Bag** 1 G/50 ML IVPB IV STA (16:35)
[2022-04-16] MEDS ORDERED: ROCEPHIN 1 Gm-D5w 50 ml Bag** 1 G/50 ML IVPB IV ONE (16:49)
[2022-04-16 17:07] VITALS: BP 128/88; PULSE 71
[2022-04-16 21:33] VITALS: O2SAT 98
== END 2022-04-16 17:20 | disposition home or self-care (01) ==
LOC: ED 14:15
DX: N20.1 Calculus of ureter (principal); N39.0 Urinary tract infection, site not specified; R11.2 Nausea with vomiting, unspecified; R19.7 Diarrhea, unspecified; Z79.899 Other long term (current) drug therapy
CPT/HCPCS: 0241U; 36000; 36415; 74176; 80053; 80307; 81015; 82150; 83690; 84703; 85025; 87086; 96360; 96365; 96374; 96375; 96376; 99284; J0696; J1885; J2405

== ENCOUNTER 2022-08-08 15:39 | Day surgery (SDC) | payer OTHER ==
[2013-03-17 21:20] VITALS: BP 140/51
[2022-08-08] MEDS ORDERED: BUPIVACAINE 0.5% VIAL IJ ONE (15:40)
[2022-08-08] MEDS ORDERED: Depo-Medrol 40 MG/ML IM ONE (15:40)
[2022-08-08] MEDS ORDERED: LIDOCAINE HCL 1% 50 MG/5 ML VL PF IJ ONE (15:40)
--- NOTE | 2022-08-08 19:48 | XRAY ---
Indication: Right knee injection. Intraoperative fluoroscopy provided for 12 seconds. Single digital spot image submitted for interpretation demonstrates needle tip projecting over the right femur intercondylar notch. Small amount of contrast injected for needle tip placement. Correlate with intraoperative findings/report.
--- NOTE | 2022-08-08 19:48 | XRAY ---
Indication: Left knee injection. Intraoperative fluoroscopy provided for 5 seconds. Single digital spot image submitted for interpretation demonstrates needle tip projecting over the left femur intercondylar notch. Small amount of contrast injected for needle tip placement. Correlate with intraoperative findings/report.
--- NOTE | 2022-08-09 10:46 | XRAY ---
12 seconds fluoroscopy time in surgery for intra-articular injection of the left knee.
--- NOTE | 2022-08-09 10:47 | XRAY ---
5 seconds fluoroscopy time in surgery for intra-articular injection of the left knee.
== END 2022-08-08 18:05 | disposition home or self-care (01) ==
LOC: SDC-PAIN 15:39
PROVIDERS: ATTEND Psychiatry & Neurology Pain Medicine
DX: M17.0 Bilateral primary osteoarthritis of knee (principal); Z79.899 Other long term (current) drug therapy
CPT/HCPCS: 20610; 73560; 77002; 81025; J1030; J2001; Q9966

== ENCOUNTER 2022-12-16 14:37 | Emergency (ER) | payer OTHER ==
[2022-12-16 15:00] VITALS: BP 140/82; PULSE 89; O2SAT 98
--- NOTE | 2022-12-16 15:34 | ERPHSYRPT ---
- History of Present Illness Time Seen by Provider: 12/16/22 14:45 Source: patient Exam Limitations: no limitations Patient Subjective Stated Complaint: pt reports ear pain beginning two days ago, reports history of frequent ear infections Triage Nursing Assessment: pt is aox3, pupils perrl, afebrile, resps easy non labored, radial pulses strong and equal, cap refill < 3 seconds, pt skin pink warm dry. pt external ear canal appears normal. upon exam pt inner ear appears inflamed and slightly swollen. Physician History: 27 years old presented in the ER with chief complaint of left earache for the last couple of days with progressive worsening. No ear discharge. Denies any history of swimming. No sore throat or URI symptoms. Moderate intensity sharp throbbing pain, partial relief with [id number] pain medications. Timing/Duration: abrupt onset, days (2) Severity: moderate ENT Location: ear (L) Prearrival Treatment: over the counter meds Associated Symptoms: ear pain (L), No nasal congestion/drainage, No ringing of ears, No difficulty swallowing Allergies/Adverse Reactions: erythromycin base [Erythromycin Base] Allergy (Mild, Verified 12/16/22 15:00) Hives penicillin G Allergy (Mild, Verified 12/16/22 15:00) Hives bupropion [From Wellbutrin] Adverse Reaction (Severe, Verified 12/16/22 15:00) suicidal/homicidal thoughts Home Medications: AMITRIPTYLINE HCL 50 mg Tab [AMITRIPTYLINE HCL 50 mg Tablet] 50 mg PO DAILY 01/02/19 [History] Cetirizine HCl 10 mg PO DAILY 01/02/19 [History] EPINEPHrine [Epipen 0.3 MG] 0.3 mg SQ DAILY PRN PRN 01/02/19 [History] Eletriptan HBr 40 mg PO Q6HPRN PRN 01/02/19 [History] Norethindrone 0.35 mg PO DAILY 01/02/19 [History] Omeprazole 20 mg PO DAILY 01/02/19 [History] Tizanidine HCl 4 mg PO BID 01/02/19 [History] Montelukast Sodium 10 mg [Singulair 10 MG] 10 mg PO DAILY 09/04/21 [History] Cariprazine HCl [Vraylar] 4 mg PO DAILY 10/22/22 [History] Duloxetine HCl 30 mg [Cymbalta 30 MG Capsule] 30 mg PO DAILY 10/22/22 [History] Ergocalciferol (Vitamin D2) [Vitamin D2] 1 cap PO DAILY 10/22/22 [History] Mv-Mn/Iron/Folic Acid/Herb 190 [Vitamin D3 Complete Caplet] 1 tab PO DAILY 10/22/22 [History] Semaglutide [Ozempic] 0.25 mg SQ WEEKLY 10/22/22 [History] dilTIAZem HCL [Diltiazem 24Hr ER (Xr)] 120 mg PO DAILY 10/22/22 [History] Hx Tetanus, Diphtheria Vaccination/Date Given: Yes Hx Influenza Vaccination/Date Given: No Hx Pneumococcal Vaccination/Date Given: No Immunizations Up to Date: Yes Travel Risk - International Travel Have you traveled outside of the country in past 3 weeks: No - Coronavirus Screening Are you exhibiting any of the following symptoms?: No Close contact with a COVID-19 positive Pt in past 14-21 Days: No - Vaccine Status Have you recieved a Covid-19 vaccination: Yes Glass Driller: Vennli - Vaccination Dates Date of 2cond Vaccination (if applicable): unk - Review of Systems Constitutional: No Symptoms Eyes: No Symptoms Ears, Nose, & Throat: Ear Pain Respiratory: No Symptoms Cardiac: No Symptoms Abdominal/Gastrointestinal: No Symptoms Genitourinary Symptoms: No Symptoms Musculoskeletal: No Symptoms Skin: No Symptoms Neurological: No Symptoms Endocrine: No Symptoms Hematologic/Lymphatic: No Symptoms - Past Medical History Pertinent Past Medical History: Yes Neurological History: Migraines ENT History: No Pertinent History Cardiac History: Other Respiratory History: No Pertinent History Endocrine Medical History: No Pertinent History Musculoskeletal History: Other GI Medical History: No Pertinent History, GERD History: No Pertinent History Psycho-Social History: Anxiety, Attention Deficit Disorder, Bipolar, Depression Female Reproductive Disorders: No Pertinent History Other Medical History: HX MITRAL VALVE PROLAPSE. INSULIN RESISTANT SYNDROME.BIPOLAR. ALSO PAIN IN HIPS DUE TO "TAKING BONE OFF THEM TO REDO ANCHOR POINTS ON THE BACK OF THE KNEE". HAS LIPOMA BACK OF NECK AND SCHEDULED FOR REMOVAL ON 11/27/22 - Past Surgical History Past Surgical History: Yes Neuro Surgical History: No Pertinent History Cardiac: No Pertinent History Respiratory: No Pertinent History Gastrointestinal: No Pertinent History Genitourinary: No Pertinent History Musculoskeletal: Orthopedic Surgery Female Surgical History: No Pertinent History Other Surgical History: TONSILLECTOMY AND BONE RESET. lipoma removed from back 2022. bilateral knee surgeries x3 - Social History Smoking Status: Former smoker Exposure to second hand smoke: No Alcohol Use: None Drug Use: none Patient Lives Alone: No Significant Family History: no pertinent family hx - Female History Hx Last Menstrual Period: 11/27/22 Hx Now: No - Nursing Vital Signs Nursing Vital Signs: Initial Vital Signs Temperature 98.7 F 12/16/22 14:50 Pulse Rate 89 12/16/22 14:50 Respiratory Rate 20 12/16/22 14:50 Blood Pressure 140/82 12/16/22 14:50 O2 Sat by Pulse Oximetry 98 12/16/22 14:50 Pain Scale Pain Intensity 9 - Physical Exam General Appearance: no apparent distress, alert Eye Exam: bilateral eye: normal inspection, PERRL, EOMI Ear Exam: right ear: canal normal, TM normal, left ear: erythema, swelling (Mild canal swelling), bilateral ear: auricle normal, other (Negative mastoid tenderness) Nasal Exam: normal inspection Throat Exam: normal, pharynx normal, moist mucus membranes, No dental tenderness, No pharynx swelling, No pharynx tenderness Neck Exam: normal inspection, non-tender, supple, full range of motion, No meningismus Cardiovascular/Respiratory Exam: normal breath sounds, regular rate/rhythm Neurologic Exam: alert, oriented x 3, cooperative, 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 No ear discharge. Denies any history of swimming. No sore throat or URI symptoms. Moderate intensity sharp throbbing pain, partial relief with [id number] pain medications. Patient has mild swelling of canal and some erythema of TM. We will start her on both oral and topical antibiotics. Outpatient follow-up recommended. Volodymyr mmended Tylenol/ibuprofen as needed for symptomatic relief. Counseled pt/family regarding: diagnosis, need for follow-up - Departure Departure Disposition: Home Clinical Impression: Otitis media, Otitis externa Condition: Stable Critical Care Time: No Referrals: LUPE DONAHUE [Primary Care Provider] - Follow up with PCP 2 days Instructions: Ear Infections (Otitis Media) in Children (DC) Additional Instructions: Take Tylenol/ibuprofen as needed for pain. Follow-up with primary care for reevaluation. Return to ER for any worsening. Prescriptions: Bro/Baci/Poly/Hc Ear Susp [Cortisporin Ear Drops 10 ml Suspension] 4 drop OT Q6H 7 Days #10 ml Doxycycline Hyclate 100 mg [Vibramycin 100 MG] 100 mg PO BID #14 tab
== END 2022-12-16 15:50 | disposition home or self-care (01) ==
LOC: ED 14:37
DX: H66.92 Otitis media, unspecified, left ear (principal); H60.92 Unspecified otitis externa, left ear; H92.02 Otalgia, left ear; Z79.85 Long-term (current) use of injectable non-insulin antidiabetic drugs; Z79.899 Other long term (current) drug therapy
CPT/HCPCS: 99281

== ENCOUNTER 2023-04-29 05:41 | Day surgery (SDC) | payer OTHER ==
[2023-04-29] MEDS ORDERED: Lactated Ringers 1,000 ML IV SCH (06:00)
[2023-04-29 06:22] LABS: HCG URINE TEST NEGATIVE (NEGATIVE)
[2023-04-29 06:36] VITALS: RESP 18
[2023-04-29] MEDS ORDERED: Versed 2 MG/2 ML Injection ONE (07:46)
[2023-04-29] MEDS ORDERED: DIPRIVAN 200 MG/20 ML IV ONE (07:46)
[2023-04-29] MEDS ORDERED: Xylocaine-Mpf 2% 5 Ml Vial ONE (07:46)
[2023-04-29] MEDS ORDERED: DEXMEDETOMIDINE 80 MCG/20ML-NS IV ONE (07:46)
[2023-04-29 08:30] VITALS: O2SAT 97
[2023-04-29 08:48] VITALS: TEMP 97.8
[2023-04-29 08:51] VITALS: BP 140/84; PULSE 110
--- NOTE | 2023-04-29 14:41 | OP ---
SURGERY DATE/TIME: 04/29/2023 0752 PREOPERATIVE DIAGNOSIS: Gastroesophageal reflux. POSTOPERATIVE DIAGNOSIS: Gastritis and retained food stuff. PROCEDURE: Esophagogastroduodenoscopy with cold forceps biopsy of the gastric antrum. SURGEON: Dr. Nguyen. ANESTHESIA: Medications were given by the anesthesia department. BRIEF HISTORY: The patient is a 28-year-old white female who is having problems that she is describing as reflux in the middle of the night all the way up to the throat. She has been on omeprazole for many months and has been on Pepcid for approximately a month now. The patient has felt no significant relief with those medications. The patient is felt to need to have endoscopic evaluation. She was described the risk of the procedure including the risk of perforation, phlebitis, untoward reaction to medication, bleeding and missed lesions. The patient verbalized her understanding and desired to have the procedure performed. DESCRIPTION OF PROCEDURE: The patient was given the medications by the anesthesia department. She had continuous pulse oximetry, ECG monitoring and intermittent blood pressure monitoring during the examination. She was placed in the left lateral decubitus position. A bite block was placed and the flexible Olympus gastroscope was used to intubate the oropharynx. A view of the larynx was obtained and was normal. The scope was easily introduced in the esophagus which appeared to be normal throughout its length. The stomach was entered where normal gastric rugal folds were seen and distended nicely with insufflation of air. There was however a fairly moderate amount of gastric food stuff still left in the stomach. We were able to pass the scope to the gastric antrum and past the pylorus and the duodenum which appeared to be essentially normal. The scope was withdrawn towards the stomach. Again, retroflex view was obtained of the lesser curvature of the fundus and cardio region of the stomach and they appeared to be normal. The scope was then redirected towards the gastric antrum where biopsies were obtained to rule out the presence of Helicobacter pylori-type organisms. The scope was then removed from the patient who tolerated the procedure well and was sent back to outpatient recovery in good condition.
== END 2023-04-29 08:50 | disposition home or self-care (01) ==
LOC: SDC 05:41
PROVIDERS: ATTEND Family Medicine
DX: K29.70 Gastritis, unspecified, without bleeding (principal); K21.9 Gastro-esophageal reflux disease without esophagitis; T18.2XXA Foreign body in stomach, initial encounter
CPT/HCPCS: 81025; J2250; J2704

== ENCOUNTER 2023-06-05 10:14 | Day surgery (SDC) | payer OTHER ==
[2013-03-17 21:20] VITALS: BP 140/51
[2023-06-05] MEDS ORDERED: LIDOCAINE HCL 2% 100 MG/5 ML IJ ONE (10:15)
[2023-06-05 11:25] LABS: HCG URINE TEST NEGATIVE (NEGATIVE)
[2023-06-05] MEDS ORDERED: DIPRIVAN 200 MG/20 ML IV ONE (12:31)
[2023-06-05] MEDS ORDERED: Xylocaine-Mpf 2% 5 Ml Vial ONE (12:34)
--- NOTE | 2023-06-05 14:05 | XRAY ---
Indication: Bilateral L4-S1 MBB. Intraoperative fluoroscopy provided for 24 seconds. 2 digital spot images submitted for interpretation demonstrates posterior needle tips projecting over the expected left and right L4-S1 nerve roots. Correlate with intraoperative findings/report.
[2023-06-05] MEDS ORDERED: Lactated Ringers 1,000 ML IV ONE (15:01)
--- NOTE | 2023-06-05 15:05 | XRAY ---
24 seconds of fluoroscopy was used in surgery for a bilateral L4-S1 MBB.
== END 2023-06-05 12:59 | disposition home or self-care (01) ==
LOC: SDC-PAIN 10:14
PROVIDERS: ATTEND Psychiatry & Neurology Pain Medicine
DX: M47.816 Spondylosis without myelopathy or radiculopathy, lumbar region (principal); Z79.899 Other long term (current) drug therapy
CPT/HCPCS: 64493; 64494; 72020; 77002; 81025; J2704

== ENCOUNTER 2023-07-10 12:19 | Day surgery (SDC) | payer OTHER ==
[2013-03-17 21:20] VITALS: BP 140/51
[2023-07-10] MEDS ORDERED: BUPIVACAINE 0.5% VIAL IJ ONE (12:20)
[2023-07-10 14:35] LABS: HCG URINE TEST NEGATIVE (NEGATIVE)
[2023-07-10] MEDS ORDERED: DIPRIVAN 200 MG/20 ML IV ONE (15:51)
[2023-07-10] MEDS ORDERED: Lactated Ringers 1,000 ML IV ONE (16:34)
--- NOTE | 2023-07-10 16:56 | XRAY ---
Indication: Bilateral L4-S1 MBB. Intraoperative fluoroscopy provided for 28 seconds. Single digital spot image submitted for interpretation demonstrates posterior needle tips projecting over the expected left and right L4-S1 nerve roots. Correlate with intraoperative findings/report.
--- NOTE | 2023-07-10 16:56 | XRAY ---
28 seconds of fluoroscopy was used in surgery for a bilateral L4-S1 MBB.
== END 2023-07-10 16:20 | disposition home or self-care (01) ==
LOC: SDC-PAIN 12:19
PROVIDERS: ATTEND Psychiatry & Neurology Pain Medicine
DX: M47.816 Spondylosis without myelopathy or radiculopathy, lumbar region (principal)
CPT/HCPCS: 64493; 64494; 72020; 77002; 81025; J2704

== ENCOUNTER 2023-09-25 13:37 | Day surgery (SDC) | payer OTHER ==
[2013-03-17 21:20] VITALS: BP 140/51
[2023-09-25] MEDS ORDERED: BUPIVACAINE 0.5% VIAL IJ ONE (13:38)
[2023-09-25] MEDS ORDERED: Depo-Medrol 40 MG/ML IM ONE (13:38)
[2023-09-25] MEDS ORDERED: LIDOCAINE HCL 1% 50 MG/5 ML VL PF IJ ONE (13:38)
[2023-09-25 13:58] LABS: HCG URINE TEST NEGATIVE (NEGATIVE)
[2023-09-25] MEDS ORDERED: DIPRIVAN 200 MG/20 ML IV ONE (15:14)
[2023-09-25] MEDS ORDERED: DEXMEDETOMIDINE 80 MCG/20ML-NS IV ONE (15:14)
[2023-09-25] MEDS ORDERED: Versed 2 MG/2 ML Injection ONE (15:14)
[2023-09-25] MEDS ORDERED: Lactated Ringers 1,000 ML IV ONE (15:53)
--- NOTE | 2023-09-25 16:51 | XRAY ---
Indication: Right L4-S1 RFA. Intraoperative fluoroscopy provided for 24 seconds. 3 digital spot image submitted for interpretation demonstrates posterior needle tips projecting over the expected right L4-S1 nerve roots. Correlate with intraoperative findings/report.
--- NOTE | 2023-09-25 18:26 | XRAY ---
24 seconds of fluoroscopy was used in surgery for a right L4-S1 RFA.
== END 2023-09-25 15:43 | disposition home or self-care (01) ==
LOC: SDC-PAIN 13:37
PROVIDERS: ATTEND Psychiatry & Neurology Pain Medicine
DX: M47.816 Spondylosis without myelopathy or radiculopathy, lumbar region (principal)
CPT/HCPCS: 20610; 64635; 64636; 72100; 77002; 81025; J1030; J2001; J2250; J2704

== ENCOUNTER 2023-10-09 13:40 | Day surgery (SDC) | payer OTHER ==
[2013-03-17 21:20] VITALS: BP 140/51
[2023-10-09] MEDS ORDERED: LIDOCAINE HCL 1% 50 MG/5 ML VL PF IJ ONE (13:41)
[2023-10-09] MEDS ORDERED: Depo-Medrol 40 MG/ML IM ONE (13:41)
[2023-10-09] MEDS ORDERED: BUPIVACAINE 0.5% VIAL IJ ONE (13:41)
[2023-10-09 13:57] LABS: HCG URINE TEST NEGATIVE (NEGATIVE)
[2023-10-09] MEDS ORDERED: Lactated Ringers 1,000 ML IV ONE (14:35)
[2023-10-09] MEDS ORDERED: DIPRIVAN 200 MG/20 ML IV ONE ×2 (15:07→15:24)
--- NOTE | 2023-10-09 16:35 | XRAY ---
Indication: Left L4-S1 RFA. Intraoperative fluoroscopy provided for 25 seconds. 3 digital spot image submitted for interpretation demonstrates posterior needle tips projecting over the expected left L4-S1 nerve roots. Correlate with intraoperative findings/report.
--- NOTE | 2023-10-09 16:37 | XRAY ---
25 seconds of fluoroscopy were used in surgery for a left L4-S1 RFA.
== END 2023-10-09 15:43 | disposition home or self-care (01) ==
LOC: SDC-PAIN 13:40
PROVIDERS: ATTEND Psychiatry & Neurology Pain Medicine
DX: M47.816 Spondylosis without myelopathy or radiculopathy, lumbar region (principal)
CPT/HCPCS: 64635; 64636; 72100; 77002; 81025; J1010; J2001; J2704; J1030

== ENCOUNTER 2024-04-15 15:23 | Day surgery (SDC) | payer OTHER ==
[2013-03-17 21:20] VITALS: BP 140/51
[2024-04-15] MEDS ORDERED: LIDOCAINE HCL 1% AMPUL 5 ML IJ ONE (15:24)
[2024-04-15] MEDS ORDERED: Depo-Medrol 40 MG/ML IM ONE (15:24)
[2024-04-15] MEDS ORDERED: Sodium Chloride 0.9(Preservative Free) 10 ML IJ ONE (15:24)
[2024-04-15 16:28] LABS: HCG URINE TEST NEGATIVE (NEGATIVE)
--- NOTE | 2024-04-15 18:22 | XRAY ---
Indication: Lumbar KHADIJAH. Intraoperative fluoroscopy provided for 25 seconds. 5 digital spot image submitted for interpretation demonstrates posterior needle tip projecting posterior to L4-L5 interspace. Small amount of contrast injected for needle tip placement. Correlate with intraoperative findings/report.
--- NOTE | 2024-04-16 08:37 | XRAY ---
25 seconds of fluoroscopy was used in surgery for a lumbar KHADIJAH.
== END 2024-04-15 18:03 | disposition home or self-care (01) ==
LOC: SDC-PAIN 15:23
PROVIDERS: ATTEND Psychiatry & Neurology Pain Medicine
DX: M54.16 Radiculopathy, lumbar region (principal)
CPT/HCPCS: 62323; 72100; 77003; 81025; Q9966

== ENCOUNTER 2024-08-12 14:12 | Day surgery (SDC) | payer OTHER ==
[2013-03-17 21:20] VITALS: BP 140/51
[2024-08-12] MEDS ORDERED: BUPIVACAINE 0.5% VIAL IJ ONE (14:13)
[2024-08-12] MEDS ORDERED: LIDOCAINE HCL 1% AMPUL 5 ML IJ ONE (14:13)
[2024-08-12] MEDS ORDERED: Depo-Medrol 40 MG/ML IM ONE (14:13)
[2024-08-12 15:38] LABS: HCG URINE TEST NEGATIVE (NEGATIVE)
--- NOTE | 2024-08-12 18:19 | XRAY ---
26 seconds of fluoroscopy were used in surgery for a left intra-articular shoulder injection.
--- NOTE | 2024-08-12 18:19 | XRAY ---
Indication: Left shoulder injection. Intraoperative fluoroscopy provided for 26 seconds. 4 digital spot image submitted for interpretation demonstrates needle tip projecting over left glenohumeral joint superiorly. Small amount of contrast injected for needle tip placement. Correlate with intraoperative findings/report.
== END 2024-08-12 17:20 | disposition home or self-care (01) ==
LOC: SDC-PAIN 14:12
PROVIDERS: ATTEND Psychiatry & Neurology Pain Medicine
DX: M19.012 Primary osteoarthritis, left shoulder (principal); M25.512 Pain in left shoulder
CPT/HCPCS: 20550; 20610; 73030; 77002; 81025; Q9966